=== PATIENT | male | born 1995 | race Caucasian/White ===

== ENCOUNTER 2021-04-18 10:14 | Emergency (ER) | payer MEDICAID, OTHER, SELFPAY ==
--- NOTE | ~2021-04-18 | CT_ITS ---
EXAMINATION: CT FACIAL BONES WITH CONTRAST CLINICAL INFORMATION: Left-sided dental abscess COMPARISON: None TECHNIQUE: 3 mm thin and reformatted 1.5 mm thin sagittal and coronal images of facial bones were obtained. This CT examination was performed using dose optimization techniques as appropriate, variously including the following: *Automated exposure control *Adjustment of mA and/or kV according to patient size (this includes techniques or standardized protocols for targeted exams where dose is matched to indication/reason for exam; i.e. extremities or head) *Use of iterative reconstruction technique DLP: 383 mGy-cm FINDINGS: There is no acute maxillofacial fracture. There is mild the enlargement of bilateral tonsils with mild narrowing of the pharyngeal airway. The The pterygoid plates are intact. The zygomatic arches are intact. The lamina papyracea are intact. The orbital rims are intact. There is 1.2 x 1.0 x 0.8 cm right carotid space lymph node, level 3 lymph nodes are seen in the submandibular space There is mild mucoperiosteal thickening bilateral maxillary sinuses. The bony sinus alba are intact. No air-fluid levels are seen. There is moderate deviation of nasal septum to the right with its small bony spur. The turbinates are symmetrical and normal. The ostiomeatal complexes are clear. The lamina papyracea are intact. The ethmoid roofs are symmetric. The carotid canals are normally covered by bone. No maxillary periapical disease is seen. The mastoid air cells and visualized middle ear cavities are well-aerated. The orbits are normal. The TMJs are unremarkable. The imaged portions of the brain demonstrate no acute abnormality. CT/CT facial bones w con IMPRESSION: No evidence of dental abscess or periapical cysts. Bilateral prominent tonsils with mild narrowing of the pharyngeal airway. Nonspecific right neck prominent lymph nodes. Small polyp or retention cyst left maxillary sinus with mild mucoperiosteal thickening bilateral maxillary sinuses.
[2021-04-18 10:45] VITALS: BP 139/81; PULSE 87; RESP 14; TEMP 36.7; O2SAT 98; BMI 28.8
[2021-04-18 12:01] LABS: MANUAL DIFF FLAG NO
[2021-04-18 12:07] LABS: Basophils Percent Auto 0.2 % (0-2); Eosinophils Absolute Auto 0.1 X10*3/uL (0.0-0.4); Eosinophils Percent Auto 1.2 % (0-4); Hematocrit 46.6 % (42-52); Hemoglobin 15.8 g/dl (14.0-18.0); Imm Gran Abs Auto 0.03 X10*3/uL (0.00-0.03); Imm Gran Pct Auto 0.3 % (0.0-0.4); Lymphocytes Absolute Auto 1.5 X10*3/uL (1.2-4.9); Lymphocytes Percent Auto 15.7 % (20-40); Mean Corpuscular HGB Conc 33.9 g/dl (31.0-36.0); Mean Corpuscular Hemoglobin 29.9 pg (27.0-33.0); Mean Corpuscular Volume 88.3 fL (80-98); Mean Platelet Volume 11.7 fL (9.4-12.4); Monocytes Absolute Auto 0.9 X10*3/uL (0.1-1.2); Monocytes Percent Auto 9.6 % (2-11); Neutrophils Absolute Auto 7.2 X10*3/uL (2.0-8.3); Platelet Count 188 X10*3/uL (160-400); Red Blood Count 5.28 X10*6/uL (4.60-5.80); Red Cell Distribution Width 11.8 % (11.0-16.0); White Blood Count 9.8 X10*3/uL (4.8-10.8)
--- NOTE | 2021-04-18 12:25 | ED.DENTAL ---
HPI - Dental/Oral General Chief complaint: Dental/Oral Stated complaint: FACIAL SWELLING Time Seen by Provider: 04/18/21 11:16 Source: patient Mode of arrival: ambulatory History of Present Illness HPI Narrative: 26-year-old male with no significant past medical history presenting to the ED complaining of left-sided facial swelling since yesterday with chronic dental issue to left upper tooth x years. Denies fever, chills, ear pain, sore throat, difficulty swallowing/handling secretion, facial trauma MD Complaint: tooth pain Related Data Previous Rx's Medication Instructions Recorded acetaminophen [Tylenol Extra 500 mg PO Q6H PRN #20 tab 04/18/21 Strength] clindamycin HCl 450 mg PO Q8H 7 Days #32 cap 04/18/21 ibuprofen 800 mg PO Q8H PRN #14 tab 04/18/21 Allergies Allergy/AdvReac Type Severity Reaction Status Date / Time No Known Allergies Allergy Unverified 08/08/20 19:32 [No Known Allergies*] Review of Systems Review of Systems: Constitutional: No Fever, No Chills ENT/Mouth: + facial swelling, +dental pain, No Ear Pain, No Nasal Congestion, No Hoarseness, No sore throat, No Swallowing Difficulty Cardiovascular: No Chest Pain, No SOB Respiratory: No Cough, No Wheezing Musculoskeletal: No joint pain, No Myalgias Skin: No Skin Lesions, No rash Yes all other systems are reviewed and are negative [facility] Past Medical History Attestation statement: The following information was validated with the patient. Medical History (Updated 04/18/21 @ 13:42 by ELIJAH Morales) Forearm fracture Surgical History (Updated 04/18/21 @ 10:48 by Galilea Bravo) H/O shoulder surgery Social History Social History Advance Directives: No Advance Directives Information Provided: No Physical Exam Vital Signs: Vital Signs: Last Vital Signs Temp 98.0 F 04/18/21 10:45 Pulse 87 04/18/21 10:45 Resp 14 04/18/21 10:45 BP 139/81 04/18/21 10:45 Pulse Ox 98 04/18/21 10:45 Body Mass Index 28.8 Const: General: cooperative, healthy appearing, comfortable and no acute distress Orientation/consciousness: patient oriented x3 Limitations: no limitations HENMT: Other: Left upper 2nd molar with gingival tenderness. No appreciable fluctuance/induration or pointing Head: Yes normal to inspection and Yes atraumatic Ears: hearing grossly normal bilaterally and TM's normal bilaterally General nose exam: Normal external nose present Face and sinus: No fluctuance Mouth: Normal oral and palatal mucosa present Throat: Yes posterior oropharynx normal, Yes tonsils normal, Yes uvula midline, No abnormal tonsil, No peritonsillar mass and No uvular edema Eyes: General: appearance normal, both eyes and all related structures EOM: EOMs intact bilaterally Neck: Neck: Yes normal visual inspection, Yes no lymphadenopathy, Yes no meningeal signs, Yes trachea midline and Yes supple Resp: Effort & Inspection: normal respiratory effort Cardio: Rate: regular rate Skin: Rashes: no rashes Wounds: no wounds Neuro: General: patient oriented x3 and no meningeal signs Gait exam (Neuro): Normal gait present Extrem: General: Yes normal to inspection Course Course Course Narrative: -no leukocytosis, CRP minimally elevated, labs otherwise unremarkable CT facial bones w con IMPRESSION: No evidence of dental abscess or periapical cysts. Bilateral prominent tonsils with mild narrowing of the pharyngeal airway. Nonspecific right neck prominent lymph nodes. Small polyp or retention cyst left maxillary sinus with mild mucoperiosteal thickening bilateral maxillary sinuses. >> no evidence of airway compromise, talking in complete sentences. 10 mg of p.o. Decadron given in the ED. 1st dose of IV clindamycin also given. These results were discussed with patient including worrisome signs and symptoms and strict return precautions MDM - Dental/Oral MDM Narrative Medical decision making narrative: 26-year-old male with no significant past medical history presenting to the ED complaining of left-sided facial swelling since yesterday with chronic dental issue to left upper tooth x years. Denies fever, chills, ear pain, sore throat, difficulty swallowing/handling secretion, facial trauma Lab Data Result diagrams: 04/18/21 11:54 04/18/21 11:53 Labs: Lab Results 04/18/21 04/18/21 04/18/21 Range/Units 11:53 11:53 11:53 WBC (4.8-10.8) X10*3/uL RBC (4.60-5.80) X10*6/uL Hgb (14.0-18.0) g/dl Hct (42-52) % MCV (80-98) fL MCH (27.0-33.0) pg MCHC (31.0-36.0) g/dl RDW (11.0-16.0) % Plt Count (160-400) X10*3/uL MPV (9.4-12.4) fL Immature Gran % (Auto) (0.0-0.4) % Neut % (Auto) (45-73) % Lymph % (Auto) (20-40) % [place] % (Auto) (2-11) % Eos % (Auto) (0-4) % Baso % (Auto) (0-2) % Lymph # (Auto) (1.2-4.9) X10*3/uL [place] # (Auto) (0.1-1.2) X10*3/uL Eos # (Auto) (0.0-0.4) X10*3/uL Baso # (Auto) (0.0-0.2) X10*3/uL Abs Immat Gran (auto) (0.00-0.03) X10*3/uL Absolute Neuts (auto) (2.0-8.3) X10*3/uL Absolute Nucleated RBC (0.0-0.012) X10*3/uL Nucleated RBC % (auto) (0.0-0.2) /100WBC ESR 9 (0-15) MM/HR Sodium (135-145) mmol/L Potassium (3.3-5.1) mmol/L Chloride (96-108) mmol/L Carbon Dioxide (22-29) mmol/L Anion Gap (12-20) BUN (9-16) mg/dL Creatinine (0.5-1.4) mg/dL Estim Creat Clear Calc Estimated GFR Random Glucose (60-115) mg/dL Lactic Acid 1.7 (0.5-2.0) mmol/L Calcium (8.4-10.2) mg/dL C-Reactive Protein 3.52 H (< or = 0.50) mg/dL 04/18/21 04/18/21 Range/Units 11:53 11:54 WBC 9.8 (4.8-10.8) X10*3/uL RBC 5.28 (4.60-5.80) X10*6/uL Hgb 15.8 (14.0-18.0) g/dl Hct 46.6 (42-52) % MCV 88.3 (80-98) fL MCH 29.9 (27.0-33.0) pg MCHC 33.9 (31.0-36.0) g/dl RDW 11.8 (11.0-16.0) % Plt Count 188 (160-400) X10*3/uL MPV 11.7 (9.4-12.4) fL Immature Gran % (Auto) 0.3 (0.0-0.4) % Neut % (Auto) 73.0 (45-73) % Lymph % (Auto) 15.7 L (20-40) % [place] % (Auto) 9.6 (2-11) % Eos % (Auto) 1.2 (0-4) % Baso % (Auto) 0.2 (0-2) % Lymph # (Auto) 1.5 (1.2-4.9) X10*3/uL [place] # (Auto) 0.9 (0.1-1.2) X10*3/uL Eos # (Auto) 0.1 (0.0-0.4) X10*3/uL Baso # (Auto) 0.0 (0.0-0.2) X10*3/uL Abs Immat Gran (auto) 0.03 (0.00-0.03) X10*3/uL Absolute Neuts (auto) 7.2 (2.0-8.3) X10*3/uL Absolute Nucleated RBC 0.000 (0.0-0.012) X10*3/uL Nucleated RBC % (auto) 0.0 (0.0-0.2) /100WBC ESR (0-15) MM/HR Sodium 141 (135-145) mmol/L Potassium 4.4 (3.3-5.1) mmol/L Chloride 105 (96-108) mmol/L Carbon Dioxide 28 (22-29) mmol/L Anion Gap 12 (12-20) BUN 13 (9-16) mg/dL Creatinine 0.77 (0.5-1.4) mg/dL Estim Creat Clear Calc 157.1 Estimated GFR > 60 Random Glucose 87 (60-115) mg/dL Lactic Acid (0.5-2.0) mmol/L Calcium 9.3 (8.4-10.2) mg/dL C-Reactive Protein (< or = 0.50) mg/dL Discharge Plan Discharge Clinical Impression: Facial swelling Patient Disposition: Home, Self-Care Instructions: Dental Abscess (ED) Additional Instructions: Your blood work was reassuring. Your CT scan showed no dental abscess however did show prominent tonsils and nonspecific inflamed lymph nodes in her right neck as well as sinusitis. You need to follow-up with her primary care doctor pertaining to these findings. Clindamycin is an antibiotic, take as prescribed for your infection. Your also given a dose of a steroid today. You need to see dentist as soon as possible. If her symptoms persist or worsen you have any difficulty swallowing, difficulty breathing, fever, chills, or are unable to handle her secretions return to the ED immediately take Tylenol and Motrin Panchal an?lisis de ozzy fue reconfortante. Panchal tomograf?a computarizada no mostr? karina?n absceso dental, sin embargo, mostr? am?gdalas prominentes y ganglios linf?ticos inflamados inespec?ficamente en panchal loki derecho, as? flori sinusitis. Debe hacer un seguimiento con panchal m?dico de atenci?n primaria en relaci?n con estos hallazgos. La clindamicina es un antibi?winter, t?vieira seg?n lo prescrito para panchal infecci?n. Tambi?n le dieron handy dosis de un esteroide hoy. Necesita analisa al dentista lo antes posible. Si sanjuanita s?ntomas persisten o empeoran, tiene alguna dificultad para tragar, dificultad para respirar, fiebre, escalofr?os o no puede manejar sanjuanita secreciones, regrese al servicio de urgencias inmediatamente tome Tylenol y Motrin. Prescriptions: New clindamycin HCl 300 mg capsule 450 mg PO Q8H 7 Days Qty: 32 RF: 0 acetaminophen [Tylenol Extra Strength] 500 mg tablet 500 mg PO Q6H PRN (Reason: pain or fever) Qty: 20 RF: 0 ibuprofen 800 mg tablet 800 mg PO Q8H PRN (Reason: pain) Qty: 14 RF: 0 Referrals: Qamar Ronquillo DMD [Dentist] - 2 days Tony Flores DDS [Physician] - 2 days Khris Campbell DMD [Physician] - 2 days
[2021-04-18 12:31] LABS: Lactic Acid 1.7 mmol/L (0.5-2.0)
[2021-04-18] MEDS: Clindamycin Phosphate/D5W 600 MG/50 ML PIGGYBACK 100 MG IV (12:31)
[2021-04-18 12:33] LABS: C Reactive Protein 3.52 mg/dL (< or = 0.50)
[2021-04-18 12:34] LABS: Anion Gap 12 (12-20); Blood Urea Nitrogen 13 mg/dL (9-16); Calcium 9.3 mg/dL (8.4-10.2); Carbon Dioxide 28 mmol/L (22-29); Chloride 105 mmol/L (96-108); Creatinine Clr Calc Pharmacy 157.1; Estimated Glomerular Filt Rate > 60; Glucose Random 87 mg/dL (60-115); Potassium 4.4 mmol/L (3.3-5.1); Sodium 141 mmol/L (135-145)
[2021-04-18] MEDS: iohexoL 350 MG/ML 100 ML INFUS..BTL IV (12:56)
[2021-04-18 13:14] LABS: Erythrocyte Sedimentation Rate 9 MM/HR (0-15)
[2021-04-18] MEDS: dexAMETHasone 2 MG TABLET 10 MG PO (13:47)
[2021-04-18 14:15] VITALS: BP 131/79; PULSE 78; RESP 16; TEMP 36.8; O2SAT 99
[2021-04-18 14:29] LABS: IDNOW Serial# 9DD0AD1C; Strep A Nucleic Acid Negative (Negative)
== END 2021-04-18 14:18 | disposition home or self-care (01) ==
PROVIDERS: Physician Assistant; Emergency Provider Emergency Medicine
DX: R22.0 Localized swelling, mass and lump, head (principal); K08.89 Other specified disorders of teeth and supporting structures
CPT/HCPCS: 36415; 70487; 80048; 83605; 85025; 85652; 86140; 87040; 87651; 96365; 99284; J8540; Q9967

== ENCOUNTER 2021-08-10 20:54 | Emergency (ER) | payer MEDICAID, SELFPAY ==
--- NOTE | 2021-08-10 | ECG_ITS ---
Test Reason : CP Blood Pressure : / mmHG Vent. Rate : 123 BPM Atrial Rate : 123 BPM P-R Int : 120 ms QRS Dur : 102 ms QT Int : 334 ms P-R-T Axes : 052 -05 024 degrees QTc Int : 478 ms Sinus tachycardia Otherwise normal ECG No previous ECGs available Referred By: Generic ED Physician Electronically Signed By:TIFFANIE JACKMAN
[2021-08-10 20:56] VITALS: BP 134/80; PULSE 110; O2SAT 98
[2021-08-10 21:03] VITALS: BP 129/75; PULSE 124; RESP 16; TEMP 36.3; O2SAT 98; BMI 29.5
--- NOTE | 2021-08-10 23:04 | ED.GENADULT ---
HPI - General Adult General Chief complaint: ETOH/Substance Use Stated complaint: NOT FELING WELL Time Seen by Provider: 08/10/21 23:02 Source: patient Mode of arrival: ambulatory Limitations: no limitations History of Present Illness HPI narrative: Patient had 4 beers and used marijuana for the 1st time feeling burning sensation in his throat and the chest earlier now feeling better no nausea no vomiting no shortness of breath no use of cocaine Related Data Previous Rx's Medication Instructions Recorded acetaminophen 500 mg tablet 500 mg PO Q6H PRN #20 tab 04/18/21 (Tylenol Extra Strength) clindamycin HCl 300 mg capsule 450 mg PO Q8H 7 Days #32 cap 04/18/21 ibuprofen 800 mg tablet 800 mg PO Q8H PRN #14 tab 04/18/21 Allergies Allergy/AdvReac Type Severity Reaction Status Date / Time No Known Allergies Allergy Unverified 08/08/20 19:32 [No Known Allergies*] Review of Systems Review of Systems: Yes all other systems are reviewed and are negative PMFSH Past Medical History Medical History Forearm fracture Surgical History H/O shoulder surgery Social History Social History Advance Directives: No Advance Directives Information Provided: No Physical Exam Vital Signs: Vital Signs: Last Vital Signs Temp 97.4 F 08/10/21 21:03 Pulse 124 H 08/10/21 21:03 Resp 16 08/10/21 21:03 BP 129/75 08/10/21 21:03 Pulse Ox 98 08/10/21 21:03 Body Mass Index 29.5 Appearance: Alert. Oriented X3. No acute distress. Anxious Eyes: PERRLA, No Nystagmus ENT: Pharynx normal. Oral Mucosa moist Neck: Normal inspection. Neck supple. CVS: Normal heart rate and rhythm. Pulses normal. Respiratory: No respiratory distress. Equal air entry bilateral, no wheezing/rales/rhonchi Abdomen: Soft and nontender. Bowel sounds are present, no mass palpable, no CVA tenderness Skin: Skin warm and dry. Normal skin color. Normal skin turgor. Extremities: No lower extremity edema. No calf tenderness Neuro: Oriented X 3. No motor deficit. No sensory deficit.No cerebellar signs , cranial nerves II-XII intact Medical Decision Making MDM Narrative Medical decision making narrative: Patient's symptoms likely from cannabis use feeling much better now after taking p.o. fluids will discharge patient home Discharge Plan Discharge Clinical Impression: Cannabis abuse Patient Disposition: Home, Self-Care Instructions: Cannabis Abuse (ED) Additional Instructions: Do not use cannabis Prescriptions: No Action clindamycin HCl 300 mg capsule 450 mg PO Q8H 7 Days Qty: 32 RF: 0 acetaminophen [Tylenol Extra Strength] 500 mg tablet 500 mg PO Q6H PRN (Reason: pain or fever) Qty: 20 RF: 0 ibuprofen 800 mg tablet 800 mg PO Q8H PRN (Reason: pain) Qty: 14 RF: 0 Interventions: ED Discharge Assessment Last Done: 08/10/21 23:08 Discharge Date/Time: 08/10/21 23:10
== END 2021-08-10 23:10 | disposition home or self-care (01) ==
PROVIDERS: Emergency Provider Internal Medicine
DX: F12.19 Cannabis abuse with unspecified cannabis-induced disorder (principal); Z79.899 Other long term (current) drug therapy
CPT/HCPCS: 93005; 99283

== ENCOUNTER 2022-06-28 02:12 | Emergency (ER) | payer MEDICAID, SELFPAY ==
--- NOTE | ~2022-06-28 | XR_ITS ---
EXAMINATION: XR SHOULDER, LEFT CLINICAL INFORMATION: Left shoulder pain COMPARISON: None TECHNIQUE: AP external rotation, Grashey, scapular Y, and axillary views of the left shoulder. FINDINGS: Intramedullary telma present within the humerus. Healed humeral diaphyseal fracture. Glenohumeral joint unremarkable. Acromioclavicular joint unremarkable. Dystrophic calcifications present within the proximal deltoid. XR/XR shoulder LT min 2V IMPRESSION: No acute fracture or dislocation.
[2022-06-28 03:22] VITALS: BP 126/78; PULSE 101; RESP 16; TEMP 37.1; O2SAT 97; BMI 29.5
[2022-06-28 05:17] VITALS: BP 145/79; PULSE 94; RESP 16; O2SAT 95
== END 2022-06-28 08:11 | disposition left against medical advice (07) ==
PROVIDERS: Emergency Provider Emergency Medicine
DX: M25.511 Pain in right shoulder (principal)
CPT/HCPCS: 73030; 99282; 99283